=== PATIENT | female | born 1950 | race Caucasian/White ===

== ENCOUNTER 2017-01-07 19:58 | Emergency (ER) | payer MEDICARE, BC ==
[2017-01-07] MEDS ORDERED: IPRATROPIUM/ALBUTEROL (0.5MG/3MG) NEB INH ONE (20:36)
--- NOTE | 2017-01-07 20:42 | Emergency Department Record ---
History of Present Illness - General Chief Complaint: Shortness of breath Stated Complaint: SOB, MAY HAVE A BLOOD CLOT Source: Patient Mode of Arrival: Ambulatory Limitations: No limitations - History of Present Illness Initial Comments: 66 yo female presents to ED for evaluation of shortness of breath and elevated outpatient D-Dimer. Patient reports that she was seen in [facility] earlier today for possible UTI, mentioned her shortness of breath as she wanted a refill on her Flovent. Outpatient D-Dimer was ordered that was elevated. Patient denies fevers, chills, or coughing symptoms. 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 Patient also reports history of colon cancer in remission. MD Complaint: Shortness of breath Onset/Timin -: Days(s) Severity: Moderate Consistency: Constant Improves With: Nothing Worsens With: Exertion Known History Of: Asthma, DVT Associated Symptoms: Denies other symptoms Treatments Prior to Arrival: None - Related Data Home Oxygen Therapy: No Home Medications Medication Instructions Recorded Confirmed Last Taken Carvedilol [Coreg] 3.125 mg PO BID 01/07/17 01/07/17 Unknown Previous Rx's Medication Instructions Recorded Fluticasone Propionate [Flovent 12 gm IH Q12H #3 aer.w.adap 01/07/17 220 Mcg] Allergies Allergy/AdvReac Type Severity Reaction Status Date / Time cyclobenzaprine Allergy Unknown HIVES Unverified 01/07/17 15:06 [CYCLOBENZAPRINE] nitroglycerin [NITROGLYCERIN] Allergy Unknown HYPERSENSIT Unverified 01/07/17 15 :06 IVITY Review of Systems Constitutional: Denies: Chills, Fever, Malaise, Night sweats Eyes: Denies: Eye discharge, Eye pain ENT: Denies: Congestion, Ear pain, Epistaxis Respiratory: Reports: Dyspnea. Denies: Cough Cardiovascular: Reports: Dyspnea on exertion. Denies: Chest pain Endocrine: Denies: Fatigue, Heat or cold intolerance Gastrointestinal: Denies: Abdominal pain, Nausea, Vomiting Genitourinary: Denies: Incontinence, Retention Musculoskeletal: Denies: Arthralgia, Back pain, Gout, Joint swelling Skin: Denies: Bruising, Change in color Neurological: Denies: Abnormal gait, Confusion, Headache, Seizure Psychiatric: Denies: Anxiety Hematological/Lymphatic: Denies: Anemia, Blood Clots Past Medical History - SOCIAL HISTORY Smoking Status: Former smoker - RESPIRATORY Hx Respiratory Disorders: Yes Hx Bronchitis: Yes Hx Pneumonia: Yes - CARDIOVASCULAR Hx Cardio Disorders: Yes Hx Cardiac Cath: Yes (stented maker 04/2012) Hx Chest Pain: Yes Hx Deep Vein Thrombosis: Yes (12/30-RLE DVT) 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/2009) Comment:: stents x3 - NEURO Hx Neuro Disorders: Yes Hx Dizziness: Yes Hx Headaches: Yes Hx Neuropathy: Yes - GI Hx GI Disorders: Yes Hx Reflux: Yes Hx Nausea/Vomiting: Yes Comment:: colon CA - Hx Genitourinary Disorders: Yes Hx UTI: Yes - ENDOCRINE Hx Endocrine Disorders: Yes Hx Diabetes: Yes Hx Thyroid Disease: No - MUSCULOSKELETAL Hx Musculoskeletal Disorders: Yes Comment:: diabetic neuropathy - PSYCH Hx Psych Problems: Yes Hx Anxiety: Yes - HEMATOLOGY/ONCOLOGY Hx Hematology/Oncology Disorders: Yes Hx Cancer: Yes (colon) Hx Chemotherapy: No Hx Radiation Therapy: No Comment:: DVT in left lower extremity Family Medical History *Cancer Comment: grandfather -colon ca Hx Diabetes: Mother Hx Heart Disease: Father *Heart Comment: heart attack Physical Exam - General General Appearance: Alert, Oriented x3, Cooperative, No acute distress Limitations: No limitations - Head Head exam: Atraumatic, Normocephalic, Normal inspection Head exam detail: negative: Abrasion, Contusion, Valente's sign, General tenderness, Hematoma, Laceration - Eye Eye exam: Normal appearance. negative: Conjunctival injection, Periorbital swelling, Periorbital tenderness, Scleral icterus - ENT Ear exam: negative: Auricular hematoma, Auricular trauma Nasal Exam: negative: Active bleeding, Discharge, Dried blood, Foreign body Mouth exam: negative: Drooling, Laceration, Muffled voice, Tongue elevation - Neck Neck exam: Normal inspection. negative: Meningismus, Tenderness - Respiratory Respiratory exam: Decreased breath sounds, Wheezes. negative: Rhonchi, Stridor - Cardiovascular Cardiovascular Exam: Regular rate, Normal rhythm, Normal heart sounds - GI/Abdominal GI/Abdominal exam: Soft. negative: Rebound, Rigid, Tenderness - Rectal Rectal exam: Deferred - exam: Deferred - Extremities Extremities exam: Normal inspection. negative: Calf tenderness, Pedal edema, Tenderness - Back Back exam: Denies: CVA tenderness (R), CVA tenderness (L) - Neurological Neurological exam: Alert, Normal gait, Oriented X3 - Psychiatric Psychiatric exam: Normal affect, Normal mood - Skin Skin exam: Normal color. negative: Abrasion Type of lesion: negative: abrasion Course Vital Signs 01/07/17 20:09 Temperature 97.8 F Pulse Rate [ 97 H Pulse Ox Probe] Respiratory 24 Rate Blood Pressure 148/80 [Left Arm] Pulse Ox 95 - Reevaluation(s) Reevaluation #1: 01/07/17 20:43 EKG: NSR 88 Normal axis, normal intervals No acute ST-T wave changes are present. No change from 02/01/16 Reevaluation #2: 01/07/17 21:14 Labs reviewed and are grossly unremarkable for an acute process. Reevaluation #3: 01/07/17 21:39 Patient reassessed, reports that her breathing symptoms are greatly improved following duoneb. CTA pending. Reevaluation #4: 01/07/17 21:56 CTA Chest: No PE, nothing acute. 9 mm nodule RUL unchanged from 2011, hiatal hernia, cholelithaisis w/o cholecystitis. Patient updated on all results, reports improvement in her symptoms, and appears stable for discharge at this time. Medical Decision Making - Lab Data Result diagrams: 01/07/17 20:47 01/07/17 20:47 Disposition Disposition: Discharge Clinical Impression: Asthma Qualifiers: Asthma severity: moderate Asthma persistence: unspecified Asthma complication type: uncomplicated Qualified Code(s): J45.909 - Unspecified asthma, uncomplicated Disposition: Home, Self-Care Condition: (2) Stable Instructions: Asthma (ED) Additional Instructions: Return to ED if your symptoms worsen or if you have any concerns. Flovent as directed. Follow-up with your family doctor in 3-5 days as directed. Prescriptions: Fluticasone Propionate [Flovent 220 Mcg] 12 gm IH Q12H #3 aer.w.adap Forms: Patient Portal Access Time of Disposition: 21:57 Quality - Quality Measures Quality Measures: N/A - Blood Pressure Screening Does Patient Have Any of the Following: No Blood Pressure Classification: Pre-Hypertensive BP Reading Systolic Measurement: 125 Diastolic Measurement: 81 Screening for High Blood Pressure: < Pre-Hypertensive BP, F/U Documented > [ G8950] Pre-Hypertensive Follow-up Interventions: Referral to alternative/primary care provider.
[2017-01-07 20:52] LABS: BASO % 0.3 % (0-6); EOS % 5.5 % (0-6); GRAN % 57.3 % (47-80); HEMATOCRIT 40.3 % (35.0-47.0); HEMOGLOBIN 13.4 gm/dl (11.6-16.0); LYMPH % 26.9 % (16-45); MEAN CELL VOLUME 87.4 fl (81-97); MEAN CORPUSCULAR HEMOGLOBIN 29.1 pg (27-33); MEAN CORPUSCULAR HGB CONC 33.3 g/dl (32-36); MEAN PLATELET VOLUME 9.3 fl (7.4-10.4); PLATELET COUNT 251 K/uL (130-400); RED BLOOD COUNT 4.61 M/uL (3.80-5.40); RED CELL DISTRIBUTION WIDTH 12.8 % (11.5-14.5); WHITE BLOOD COUNT W/O DIFF 8.6 K/uL (4.2-12.2)
[2017-01-07 21:10] LABS: ALB/GLOB RATIO 1.1 (1.1-1.8); ALBUMIN 3.9 g/dL (4.0-5.0); ALKALINE PHOSPHATASE 105 U/L (35-104); ALT/SGPT 12 U/L (<33); AST/SGOT 14 U/L (10.0-35.0); BLOOD UREA NITROGEN 13 mg/dL (8-23); CREATININE 0.6 mg/dL (0.5-0.9); EST GLOMERULAR FILTRATION RATE > 60 mL/min; GLUCOSE,RANDOM 169 mg/dL (74-109); TOTAL PROTEIN 7.4 g/dL (6.6-8.7)
--- NOTE | 2017-01-08 14:19 | CT ANGIOGRAM REPORT ---
EXAM: CTA OF THE CHEST HISTORY: SHORTNESS OF BREATH FOR ONE WEEK. TECHNIQUE: Contiguous axial images from the thoracic inlet to the upper abdomen were obtained after the uneventful intravenous administration of 80 ml of Omnipaque 350. Sagittal and coronal two dimensional MIP as well as 3D/MIP reformatted images of the thorax were obtained for better anatomic delineation. Comparison: CT of the chest 06/09/15. FINDINGS: Persistent nodule in the anterior aspect of the right lower lobe which is noncalcified measuring 7 mm, unchanged from 2012. The lungs are otherwise clear. No pleural effusion. Central airways are patent. The heart is borderline enlarged, but there is no pericardial effusion. Mild to moderate coronary artery calcification. No enlarged lymph nodes in the thorax. The pulmonary arteries are well opacified. No filling defect to suggest pulmonary embolism. No thoracic aorta dissection. Moderate sized hiatal hernia. The upper abdomen demonstrates a few small dependent gallstones in the gallbladder with no adjacent inflammation. No lytic or blastic osseous lesion. IMPRESSION: 1. NO ACUTE INTRATHORACIC PROCESS WITH NO PE OR THORACIC AORTIC DISSECTION. 2. BORDERLINE CARDIOMEGALY. 3. BENIGN 7 MM NODULE RIGHT UPPER LOBE. 4. MODERATE SIZED HIATAL HERNIA. 5. CHOLELITHIASIS. JOB NUMBER: [id number] [facility]
== END 2017-01-07 22:11 | disposition home or self-care (01) ==
LOC: ER 19:58
DX: J45.909 Unspecified asthma, uncomplicated (principal); R06.02 Shortness of breath; R79.89 Other specified abnormal findings of blood chemistry; E11.9 Type 2 diabetes mellitus without complications; I25.2 Old myocardial infarction; Z87.891 Personal history of nicotine dependence
CPT/HCPCS: 99284 ×2; 85025; 80053; 85379; 71275; 94640; 93005; 93010; Q9967

== ENCOUNTER 2017-04-07 16:07 | Emergency (ER) | payer MEDICARE, BC ==
--- NOTE | 2017-04-07 16:59 | Emergency Department Record ---
History of Present Illness - General Chief complaint: Edema Stated complaint: SWELLING/PAIN IN BOTH HANDS Time Seen by Provider: 04/07/17 16:44 Source: Patient Mode of Arrival: Ambulatory - History of Present Illness Initial comments: Patient states her hands have been swelling for over a week, and they worsen at night. Her rings still are loose enough. She has been off her lyrica for some time and has been overmedicating with nourontin, tylenol and ibuprofen for her pain. She went to [facility] and said that they couldn't see her today, but she did not make an appointment. She wishes her medications refilled. Complaint: Extremity swelling (fingers) Onset/Timin -: Days(s) History of Same: No Severity scale (1-10): 1 Quality: Aching Improves with: Nothing Worsens with: Nothing Associated Symptoms: Denies other symptoms - Related Data Home Medications Medication Instructions Recorded Confirmed Last Taken Aspirin [Aspir-Low] 1 tab PO DAILY 04/07/17 04/07/17 04/07/17 Gabapentin [Neurontin] 300 mg PO TID 04/07/17 04/07/17 04/07/17 Previous Rx's Medication Instructions Recorded Fluticasone Propionate [Flovent 12 gm IH Q12H #3 aer.w.adap 01/07/17 220 Mcg] Cephalexin [Keflex] 500 mg PO QID #40 cap 04/07/17 Indomethacin [Indocin] 50 mg PO TID #30 cap 04/07/17 Allergies Allergy/AdvReac Type Severity Reaction Status Date / Time cyclobenzaprine Allergy Unknown HIVES Verified 04/07/17 16:28 [CYCLOBENZAPRINE] nitroglycerin [NITROGLYCERIN] Allergy Unknown HYPERSENSIT Verified 04/07/17 16: 28 IVITY Travel Screening - Travel/Exposure Within Last 30 Days Have you traveled within the last 30 days?: No - Travel/Exposure Within Last Year Have you traveled outside the [place] in the last year?: No - Additonal Travel Details Have you been exposed to anyone with a communicable illness?: No - Travel Symptoms Symptom Screening: None Review of Systems Reviewed: No additional complaints except as noted below Constitutional: Reports: As per HPI. Denies: Chills, Fever, Malaise, Night sweats, Weakness, Weight change Eyes: Reports: As per HPI. Denies: Eye discharge, Eye pain, Photophobia, Vision change ENT: Reports: As per HPI. Denies: Congestion, Dental pain, Ear pain, Epistaxis , Hearing loss, Throat pain Respiratory: Reports: As per HPI. Denies: Cough, Dyspnea, Hemoptysis, Stridor, Wheezes Cardiovascular: Reports: As per HPI. Denies: Arrhythmia, Chest pain, Dyspnea on exertion, Edema, Murmurs, Orthopnea, Palpitations, Paroxysmal nocturnal dyspnea, Rheumatic Fever, Syncope Endocrine: Reports: As per HPI. Denies: Fatigue, Heat or cold intolerance, Polydipsia, Polyuria Gastrointestinal: Reports: As per HPI. Denies: Abdominal pain, Constipation, Diarrhea, Hematemesis, Hematochezia, Melena, Nausea, Vomiting Genitourinary: Reports: As per HPI. Denies: Abnormal menses, Discharge, Dyspareunia, Dysuria, Frequency, Hematuria, Incontinence, Retention, Urgency Musculoskeletal: Reports: As per HPI. Denies: Arthralgia, Back pain, Gout, Joint swelling, Myalgia, Neck pain Skin: Reports: As per HPI. Denies: Bruising, Change in color, Change in hair/ nails, Lesions, Pruritus, Rash Neurological: Reports: As per HPI. Denies: Abnormal gait, Confusion, Headache, Numbness, Paresthesias, Seizure, Tingling, Tremors, Vertigo, Weakness Psychiatric: Reports: As per HPI. Denies: Anxiety, Auditory hallucinations, Depression, Homicidal thoughts, Suicidal thoughts, Visual hallucinations Hematological/Lymphatic: Reports: As per HPI. 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) Comment:: stents x3 - NEURO Hx Neuro Disorders: Yes Hx Dizziness: Yes Hx Headaches: Yes Hx Neuropathy: Yes - GI Hx GI Disorders: Yes Hx Reflux: Yes Hx Nausea/Vomiting: Yes Comment:: colon CA - Hx Genitourinary Disorders: Yes Hx UTI: Yes - ENDOCRINE Hx Endocrine Disorders: Yes Hx Diabetes: Yes Hx Thyroid Disease: No - MUSCULOSKELETAL Hx Musculoskeletal Disorders: Yes Comment:: diabetic neuropathy - PSYCH Hx Psych Problems: Yes Hx Anxiety: Yes - HEMATOLOGY/ONCOLOGY Hx Hematology/Oncology Disorders: Yes Hx Cancer: Yes (colon) Hx Chemotherapy: No Hx Radiation Therapy: No Comment:: DVT in left lower extremity Family Medical History Any Significant Family History?: No *Cancer Comment: grandfather -colon ca Hx Diabetes: Mother Hx Heart Disease: Father *Heart Comment: heart attack Physical Exam - General General Appearance: Alert, Oriented x3, Cooperative, No acute distress, Mild distress (upset, tearful) - Head Head exam: Normal inspection - Eye Eye exam: Normal appearance, PERRL Pupils: Normal accommodation - ENT ENT exam: Normal exam, Mucous membranes moist, Normal external ear exam, Normal orophraynx, TM's normal bilaterally Ear exam: Normal external inspection. negative: External canal tenderness Nasal Exam: Normal inspection. negative: Discharge, Sinus tenderness Mouth exam: Normal external inspection, Tongue normal Teeth exam: Normal inspection. negative: Dental caries Throat exam: Normal inspection. negative: Tonsillar erythema, Tonsillar exudate - Neck Neck exam: Normal inspection, Full ROM. negative: Tenderness - Respiratory Respiratory exam: Normal lung sounds bilaterally. negative: Respiratory distress - Cardiovascular Cardiovascular Exam: Regular rate, Normal rhythm, Normal heart sounds - GI/Abdominal GI/Abdominal exam: Soft, Normal bowel sounds. negative: Tenderness - Rectal Rectal exam: Deferred - exam: Deferred - Extremities Extremities exam: Normal inspection, Full ROM, Normal capillary refill, Pedal edema (trace pitting bilaterally), Other (right great toe with erythema around nail and tenderness). negative: Calf tenderness, Tenderness - Back Back exam: Reports: Normal inspection, Full ROM. Denies: Muscle spasm, Rash noted, Tenderness - Neurological Neurological exam: Alert, CN II-XII intact, Normal gait, Oriented X3, Reflexes normal. negative: Motor sensory deficit - Psychiatric Psychiatric exam: Normal affect, Normal mood - Skin Skin exam: Dry, Intact, Normal color, Warm Course Vital Signs 04/07/17 16:14 Temperature 97.9 F Pulse Rate 94 H Respiratory 16 Rate Blood Pressure 138/100 Pulse Ox 94 L Medical Decision Making - Lab Data Result diagrams: 04/07/17 17:25 04/07/17 17:25 Disposition Disposition: Discharge Clinical Impression: Edema extremities, Cellulitis of great toe, right Condition: (2) Stable Instructions: Rheumatoid Arthritis (ED), Autoimmune Disease (ED) Additional Instructions: Take keflex as directed until gone. indocin as directed for pain. Follow up [facility] PCP without fail Call in morning for appointmentin the next 1-2 weeks or sooner. Prescriptions: Cephalexin [Keflex] 500 mg PO QID #40 cap Indomethacin [Indocin] 50 mg PO TID #30 cap Quality - Quality Measures Quality Measures: N/A - Blood Pressure Screening Does Patient Have Any of the Following: No, Active Dx of HTN Blood Pressure Classification: Hypertensive Reading Systolic Measurement: 138 Diastolic Measurement: 100 Screening for High Blood Pressure: Patient Exclusion, Hx of HTN [G9744]
[2017-04-07 17:37] LABS: BASO % 0.6 % (0-6); EOS % 5.2 % (0-6); HEMATOCRIT 39.7 % (35.0-47.0); HEMOGLOBIN 13.5 gm/dl (11.6-16.0); LYMPH % 29.3 % (16-45); MEAN CELL VOLUME 87.1 fl (81-97); MEAN CORPUSCULAR HEMOGLOBIN 29.6 pg (27-33); MEAN PLATELET VOLUME 8.9 fl (7.4-10.4); MONO % 8.9 % (0-9); PLATELET COUNT 242 K/uL (130-400); RED BLOOD COUNT 4.56 M/uL (3.80-5.40); WHITE BLOOD COUNT W/O DIFF 6.5 K/uL (4.2-12.2)
[2017-04-07 17:51] LABS: BLOOD UREA NITROGEN 17 mg/dL (8-23); CREATININE 0.7 mg/dL (0.5-0.9); EST GLOMERULAR FILTRATION RATE > 60 mL/min
[2017-04-07 17:52] LABS: INR 1.03; PROTHROMBIN TIME (PATIENT) 11.1 SECONDS (9.5-12.1); TOTAL PROTEIN 7.2 g/dL (6.6-8.7)
[2017-04-07 17:54] LABS: GLUCOSE,RANDOM 247 mg/dL (74-109)
[2017-04-07 17:56] LABS: ALT/SGPT 11 U/L (<33); AST/SGOT 12 U/L (10.0-35.0)
[2017-04-07 17:57] LABS: ALB/GLOB RATIO 1.5 (1.1-1.8); ALBUMIN 4.3 g/dL (4.0-5.0); ALKALINE PHOSPHATASE 93 U/L (35-104)
[2017-04-07 18:06] LABS: RHEUMATOID FACTOR SCREEN POSITIVE (NEGATIVE)
[2017-04-07 18:12] LABS: C-REACTIVE PROTEIN 0.7 mg/dL (<0.5)
[2017-04-07 18:16] LABS: ERYTHROCYTE SEDIMENTATION RATE 18 mm/hr (0-30)
[2017-04-07 18:27] LABS: RHEUMATOID FACTOR TITRE 1:16
--- NOTE | 2017-04-07 19:49 | RADIOLOGY REPORT ---
EXAM: TOES, RIGHT HISTORY: RIGHT GREAT TOE PAIN, SWELLING, AND REDNESS. TECHNIQUE: Three views of the right great toe were obtained. COMPARISON: None. FINDINGS: There is generalized soft tissue swelling. There is no soft tissue air or foreign body. There are mild arthritic changes within the interphalangeal joint of the great toe. There is no acute fracture or dislocation. A small periarticular erosion is present at the base of the first distal phalanx. Minor arthritic changes are partially visualized within the other toes. IMPRESSION: 1. NO ACUTE OSSEOUS ABNORMALITY. 2. MILD ARTHRITIC CHANGES OF THE INTERPHALANGEAL JOINT OF THE GREAT TOE WITH A SMALL PERIARTICULAR EROSION. 3. MILD SOFT TISSUE SWELLING. JOB NUMBER: [id number] [facility]
== END 2017-04-07 18:39 | disposition home or self-care (01) ==
LOC: ER 16:07
DX: L03.031 Cellulitis of right toe (principal); R60.0 Localized edema; I25.2 Old myocardial infarction; E11.9 Type 2 diabetes mellitus without complications; Z87.891 Personal history of nicotine dependence
CPT/HCPCS: 73660; 80053; 84550; 85025; 85610; 85651; 86140; 86431; 99283; 99284

== ENCOUNTER 2018-06-05 18:13 | Emergency (ER) | payer MEDICARE, BC ==
[2018-06-05 19:16] LABS: BASO % 1.3 % (0-6); EOS % 3.4 % (0-6); GRAN % 54.2 % (47-80); HEMATOCRIT 33.6 % (35.0-47.0); HEMOGLOBIN 10.4 gm/dl (11.6-16.0); LYMPH % 27.2 % (16-45); MEAN CELL VOLUME 89.8 fl (81-97); MEAN CORPUSCULAR HEMOGLOBIN 27.8 pg (27-33); MEAN PLATELET VOLUME 8.9 fl (7.4-10.4); MONO % 13.9 % (0-9); PLATELET COUNT 303 K/uL (130-400); RED BLOOD COUNT 3.74 M/uL (3.80-5.40); RED CELL DISTRIBUTION WIDTH 14.1 % (11.5-14.5)
--- NOTE | 2018-06-05 19:23 | Emergency Department Record ---
History of Present Illness - General Chief Complaint: Cough Stated Complaint: COUGH Time Seen by Provider: 06/05/18 18:29 Source: Patient Mode of Arrival: Ambulatory Limitations: No limitations - History of Present Illness Initial comments: pt was recently discharged from [facility] for pneumonia. she is feeling worse. she is weak, sleeping a lot. she has llq ap and n. she has a cough and sob -: Days(s) Location: Abdomen Quality: Aching Associated Symptoms: Cough, Loss of appetite, Malaise, Nausea/vomiting, Shortness of breath, Weakness - Lloyd Coma Scale Eye Response: (4) Open spontaneously Motor Response: (6) Obeys commands Verbal Response: (5) Oriented [place] Total: 15 - Related Data Home Medications Medication Instructions Recorded Confirmed Last Taken Acetaminophen [Tylenol 325Mg] 325 mg PO Q6H 06/05/18 06/05/18 Unknown Ascorbic Acid [Vitamin C] 250 mg PO DAILY 06/05/18 06/05/18 Unknown Celecoxib [Celebrex] 100 mg PO DAILY 06/05/18 06/05/18 Unknown Cholecalciferol (Vitamin D3) 1,000 unit PO DAILY 06/05/18 06/05/18 Unknown [Vitamin D3] Escitalopram Oxalate [Lexapro] 10 mg PO DAILY 06/05/18 06/05/18 Unknown Leflunomide [Arava] 20 mg PO DAILY 06/05/18 06/05/18 Unknown Prednisone 5 mg PO DAILY 06/05/18 06/05/18 Unknown Rivaroxaban [Xarelto] 2.5 mg PO DAILY 06/05/18 06/05/18 Unknown Previous Rx's Medication Instructions Recorded Fluticasone Propionate [Flovent 12 gm IH Q12H #3 aer.w.adap 01/07/17 220 Mcg] Levofloxacin [Levaquin] 750 mg PO DAILY #7 tab 06/06/18 Allergies Allergy/AdvReac Type Severity Reaction Status Date / Time cyclobenzaprine Allergy Unknown HIVES Verified 06/05/18 18:23 [CYCLOBENZAPRINE] nitroglycerin [NITROGLYCERIN] Allergy Unknown HYPERSENSIT Verified 06/05/18 18: 23 IVITY Travel Screening - Travel/Exposure Within Last 30 Days Have you traveled within the last 30 days?: No Review of Systems Reviewed: No additional complaints except as noted below Constitutional: Reports: As per HPI, Malaise, Weakness. Denies: Chills, Fever, Night sweats, Weight change Eyes: Reports: As per HPI. Denies: Eye discharge, Eye pain, Photophobia, Vision change ENT: Reports: As per HPI. Denies: Congestion, Dental pain, Ear pain, Epistaxis , Hearing loss, Throat pain Respiratory: Reports: As per HPI, Cough. Denies: Dyspnea, Hemoptysis, Stridor, Wheezes Cardiovascular: Reports: As per HPI, Dyspnea on exertion, Orthopnea. Denies: Arrhythmia, Chest pain, Edema, Murmurs, Palpitations, Paroxysmal nocturnal dyspnea, Rheumatic Fever, Syncope Endocrine: Reports: As per HPI. Denies: Fatigue, Heat or cold intolerance, Polydipsia, Polyuria Gastrointestinal: Reports: As per HPI. Denies: Abdominal pain, Constipation, Diarrhea, Hematemesis, Hematochezia, Melena, Nausea, Vomiting Genitourinary: Reports: As per HPI. Denies: Abnormal menses, Discharge, Dyspareunia, Dysuria, Frequency, Hematuria, Incontinence, Retention, Urgency Musculoskeletal: Reports: As per HPI. Denies: Arthralgia, Back pain, Gout, Joint swelling, Myalgia, Neck pain Skin: Reports: As per HPI. Denies: Bruising, Change in color, Change in hair/ nails, Lesions, Pruritus, Rash Neurological: Reports: As per HPI. Denies: Abnormal gait, Confusion, Headache, Numbness, Paresthesias, Seizure, Tingling, Tremors, Vertigo, Weakness Psychiatric: Reports: As per HPI. Denies: Anxiety, Auditory hallucinations, Depression, Homicidal thoughts, Suicidal thoughts, Visual hallucinations Hematological/Lymphatic: Reports: As per HPI. 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) Hx Irregular Heartbeat: Yes (afib) Comment:: stents x3 - NEURO Hx Neuro Disorders: Yes Hx Dizziness: Yes Hx Headaches: Yes Hx Neuropathy: Yes - GI Hx GI Disorders: Yes Hx Reflux: Yes Hx Nausea/Vomiting: Yes Comment:: colon CA - Hx Genitourinary Disorders: Yes Hx UTI: Yes - ENDOCRINE Hx Endocrine Disorders: Yes Hx Diabetes: Yes Hx Thyroid Disease: No - MUSCULOSKELETAL Hx Musculoskeletal Disorders: Yes Comment:: diabetic neuropathy - PSYCH Hx Psych Problems: Yes Hx Anxiety: Yes - HEMATOLOGY/ONCOLOGY Hx Hematology/Oncology Disorders: Yes Hx Cancer: Yes (colon) Hx Chemotherapy: No Hx Radiation Therapy: No Comment:: DVT in left lower extremity Family Medical History Any Significant Family History?: Yes *Cancer Comment: grandfather -colon ca Hx Diabetes: Mother Hx Heart Disease: Father *Heart Comment: heart attack Physical Exam - General General Appearance: Alert, Oriented x3, Cooperative, Mild distress - Head Head exam: Normal inspection - Eye Eye exam: Normal appearance, PERRL, EOMI Pupils: Normal accommodation - ENT ENT exam: Normal exam, Mucous membranes moist, Normal external ear exam, Normal orophraynx Ear exam: Normal external inspection. negative: External canal tenderness Nasal Exam: Normal inspection. negative: Discharge, Sinus tenderness Mouth exam: Normal external inspection, Tongue normal Teeth exam: Normal inspection. negative: Dental caries Throat exam: Normal inspection. negative: Tonsillar erythema, Tonsillar exudate - Neck Neck exam: Normal inspection, Full ROM. negative: Tenderness - Respiratory Respiratory exam: Normal lung sounds bilaterally. negative: Respiratory distress - Cardiovascular Cardiovascular Exam: Normal rhythm, Normal heart sounds, Tachycardia - GI/Abdominal GI/Abdominal exam: Soft, Normal bowel sounds, Tenderness - Rectal Rectal exam: Deferred - exam: Deferred - Extremities Extremities exam: Normal inspection, Full ROM, Normal capillary refill. negative: Tenderness - Back Back exam: Reports: Normal inspection, Full ROM. Denies: Muscle spasm, Rash noted, Tenderness - Neurological Neurological exam: Alert, CN II-XII intact, Normal gait, Oriented X3 - Psychiatric Psychiatric exam: Normal affect, Normal mood - Skin Skin exam: Dry, Intact, Pallor, Warm Course Vital Signs 06/05/18 18:17 Temperature 97.9 F Pulse Rate 100 H Respiratory 20 Rate Blood Pressure 152/91 Pulse Ox 97 - Reevaluation(s) Reevaluation #1: 06/06/18 00:40 pt feels better. Medical Decision Making - Lab Data Result diagrams: 06/05/18 19:03 06/05/18 19:03 Lab Results 06/05/18 06/05/18 Range/Units 19:03 19:15 WBC 6.0 (4.2-12.2) K/uL RBC 3.74 L (3.80-5.40) M/uL Hgb 10.4 L (11.6-16.0) gm/dl Hct 33.6 L (35.0-47.0) % MCV 89.8 (81-97) fl MCH 27.8 (27-33) pg MCHC 31.0 L (32-36) g/dl RDW 14.1 (11.5-14.5) % Plt Count 303 (130-400) K/uL MPV 8.9 (7.4-10.4) fl Gran % 54.2 (47-80) % Lymphocytes % 27.2 (16-45) % Monocytes % 13.9 H (0-9) % Eosinophils % 3.4 (0-6) % Basophils % 1.3 (0-6) % Magnesium Cancelled Disposition Disposition: Discharge Clinical Impression: Hypomagnesemia Pneumonia Qualifiers: Pneumonia type: due to unspecified organism Laterality: right Lung location: middle lobe of lung Qualified Code(s): J18.1 - Lobar pneumonia, unspecified organism Disposition: Home, Self-Care Condition: (1) Good Instructions: Pneumonia (ED), Hypomagnesemia (ED) Additional Instructions: follow up with family doctor. return sooner if worse. continue magnesium for 3 days and have it rechecked by family doctor. Prescriptions: Levofloxacin [Levaquin] 750 mg PO DAILY #7 tab Quality - Quality Measures Quality Measures: N/A - Blood Pressure Screening Does Patient Have Any of the Following: Active Dx of HTN Blood Pressure Classification: Hypertensive Reading Systolic Measurement: 152 Diastolic Measurement: 91 Screening for High Blood Pressure: Patient Exclusion, Hx of HTN [G9744]
[2018-06-05 19:29] LABS: BLOOD UREA NITROGEN 13 mg/dL (8-23); CREATININE 0.9 mg/dL (0.5-0.9); EST GLOMERULAR FILTRATION RATE > 60 mL/min
[2018-06-05 19:30] LABS: LIPASE 15 U/L (13-60)
[2018-06-05 19:32] LABS: GLUCOSE,RANDOM 272 mg/dL (74-109)
[2018-06-05 19:34] LABS: ALT/SGPT 21 U/L (<33)
[2018-06-05 19:35] LABS: ALB/GLOB RATIO 1.2 (1.1-1.8); ALBUMIN 3.3 g/dL (4.0-5.0); ALKALINE PHOSPHATASE 92 U/L (35-104); AST/SGOT 16 U/L (10.0-35.0)
[2018-06-05] MEDS ORDERED: MAGNESIUM SULFATE 16 MEQ in 0.9 % SODIUM CHLORIDE 100ML 100 ML IV ONE (19:57)
[2018-06-05] MEDS ORDERED: FUROSEMIDE IV 20MG/2ML VIAL IVP ONE (22:46)
[2018-06-05] MEDS ORDERED: LEVOFLOXACIN/D5W 750 MG/150 ML BAG IVPB ONE (22:51)
[2018-06-05 23:35] LABS: URINE APPEARANCE CLEAR; URINE BILIRUBIN NEGATIVE (NEGATIVE); URINE BLOOD NEGATIVE (NEGATIVE); URINE COLOR YELLOW; URINE GLUCOSE (UA) NEGATIVE (NEGATIVE); URINE KETONE NEGATIVE (NEGATIVE); URINE LEUKOCYTE ESTERASE NEGATIVE (NEGATIVE); URINE NITRITE NEGATIVE (NEGATIVE); URINE PROTEIN NEGATIVE (NEGATIVE); URINE UROBILINOGEN 0.2 E.U./dL (0.20 - 1.00)
--- NOTE | 2018-06-08 07:34 | RADIOLOGY REPORT ---
EXAM: CHEST, TWO VIEWS HISTORY: RECENTLY DIAGNOSED PNEUMONIA, PROGRESSIVE WEAKNESS AND SHORTNESS OF BREATH WITH COUGH. TECHNIQUE: Two views of the chest were obtained. Comparison: CT of the abdomen and pelvis 06/05/18, chest radiograph 02/01/16. FINDINGS: The cardiac silhouette is within normal size limits. The thoracic aorta is calcified. Patchy right middle lobe opacities. No significant pleural fluid collection appreciated. No visible pneumothorax. IMPRESSION: PATCHY RIGHT MIDDLE LOBE OPACITIES, MAY REPRESENT ATELECTASIS OR PNEUMONIA. JOB NUMBER: [id number] [facility]
--- NOTE | 2018-06-08 07:41 | CT SCAN REPORT ---
EXAM: CT OF THE ABDOMEN AND PELVIS WITH CONTRAST HISTORY: CHEST PAIN AND WEAKNESS. PRIOR HISTORY OF COLON CANCER STATUS POST RESECTION, PRIOR APPENDECTOMY. TECHNIQUE: CT of the abdomen and pelvis was obtained utilizing 100 ml Omnipaque 300 intravenous contrast. Comparison: None. FINDINGS: Partially seen right middle lobe patchy consolidation. Minimal irregular consolidation of the medial right lower lobe as well. Moderate sized hiatal hernia. Cholelithiasis. Unremarkable appearance of the liver, adrenal glands, spleen, and pancreas. Symmetric renal perfusion. No hydronephrosis. Diffuse atherosclerotic calcification of the aortoiliac arterial access without evidence of aneurysm or dissection. Oral contrast within the distal small bowel and colon, to the level of the rectum. Short segment of narrowing involving the mid transverse colon. The remainder of the colon appears non-thickened and noninflamed. The stomach and small bowel are nondilated. No mesenteric or retroperitoneal lymphadenopathy. No free air or free fluid. No adnexal mass is seen. Unremarkable appearance of the urinary bladder. Degenerative changes in the hips, greater on the right. Degenerative changes of the lumbar spine. IMPRESSION: 1. NO ACUTE FINDINGS IN THE ABDOMEN OR PELVIS. 2. PATCHY OPACITIES IN THE RIGHT LUNG BASE, MAY REPRESENT PNEUMONIA AND/OR ATELECTASIS. 3. SHORT SEGMENT OF NARROWING INVOLVING THE MID TRANSVERSE COLON; FAVOR TRANSIENT UNDERDISTENTION, ENTERIC CONTRAST AND STOOL ARE SEEN DISTALLY. RECOMMEND CORRELATION WITH COLONOSCOPY HISTORY. 4. CHOLELITHIASIS. 5. SMALL TO MODERATE SIZED HIATAL HERNIA. JOB NUMBER: [id number] [facility]
== END 2018-06-06 01:18 | disposition home or self-care (01) ==
LOC: ER 18:13
DX: J18.1 Lobar pneumonia, unspecified organism (principal); E83.42 Hypomagnesemia; R53.1 Weakness; R11.2 Nausea with vomiting, unspecified; R06.02 Shortness of breath; E11.9 Type 2 diabetes mellitus without complications; I10 Essential (primary) hypertension; I25.2 Old myocardial infarction; Z87.891 Personal history of nicotine dependence
CPT/HCPCS: 71046; 74177; 80053; 81003; 82800; 83605; 83690; 83735; 83880; 84484; 85025; 96365; 96366; 96375; 99284; J1940; J1956

== ENCOUNTER 2018-06-07 17:00 | Observation (INO) | payer MEDICARE, BC ==
--- NOTE | 2018-06-07 17:41 | Emergency Department Record ---
History of Present Illness - General Chief Complaint: Chest Pain Stated Complaint: LUC,CHEST PAIN,WEAKNESS Time Seen by Provider: 06/07/18 17:17 Source: Patient Mode of Arrival: Ambulatory Limitations: No limitations - History of Present Illness Initial Comments: The patient is here due to not feeling well for 3 weeks. She was recently in [place] for Pneumonia and was admitted for 6 days leaving about 11 days ago. Since she has not felt well. She has had anterior chest pain mildly for about 3 weeks but it has worsened in the last 3 days. The patient states the pain is sometimes retrosternal and aching. She has had intermittent LUC, SOB, sweating and nausea. The patient was here 2 days ago in the ER and told she still had pneumonia and was started on Levaquin. Since leaving the pain has worsened at times and now is mainly pain in the upper abdomen. The patient has been taking Xarelto since the fall of last year due to intermittent Afib. She does state her cough is improving. The patient also states she is supposed to have had her GB removed but due to the Afib and Xarelto it was postponed. MD Complaint: Chest pain Onset/Timin -: Week(s) Improves With: Nothing Worsens With: Nothing - Related Data Home Medications Medication Instructions Recorded Confirmed Last Taken Prednisone 5 mg PO Q48H 06/07/18 06/07/18 Unknown Pregabalin [Lyrica] 100 mg PO DAILY 06/07/18 06/07/18 Unknown Previous Rx's Medication Instructions Recorded Fluticasone Propionate [Flovent 12 gm IH Q12H #3 aer.w.adap 01/07/17 220 Mcg] Levofloxacin [Levaquin] 750 mg PO DAILY #7 tab 06/06/18 Allergies Allergy/AdvReac Type Severity Reaction Status Date / Time cyclobenzaprine Allergy Unknown HIVES Verified 06/07/18 17:15 [CYCLOBENZAPRINE] nitroglycerin [NITROGLYCERIN] Allergy Unknown HYPERSENSIT Verified 06/07/18 17: 15 IVITY Travel Screening - Travel/Exposure Within Last 30 Days Have you traveled within the last 30 days?: No - Travel/Exposure Within Last Year Have you traveled outside the [place] in the last year?: No - Additonal Travel Details Have you been exposed to anyone with a communicable illness?: No - Travel Symptoms Symptom Screening: None Review of Systems Constitutional: Reports: Malaise. Denies: Chills, Fever Eyes: Denies: Eye discharge ENT: Denies: Congestion Respiratory: Reports: Cough. Denies: Dyspnea Cardiovascular: Reports: Chest pain. 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/2009) Hx Irregular Heartbeat: Yes (afib) Comment:: stents x3 - NEURO Hx Neuro Disorders: Yes Hx Dizziness: Yes Hx Headaches: Yes Hx Neuropathy: Yes - GI Hx GI Disorders: Yes Hx Reflux: Yes Hx Nausea/Vomiting: Yes Comment:: colon CA - Hx Genitourinary Disorders: Yes Hx UTI: Yes - ENDOCRINE Hx Endocrine Disorders: Yes Hx Diabetes: Yes Hx Thyroid Disease: No - MUSCULOSKELETAL Hx Musculoskeletal Disorders: Yes Comment:: diabetic neuropathy - PSYCH Hx Psych Problems: Yes Hx Anxiety: Yes - HEMATOLOGY/ONCOLOGY Hx Hematology/Oncology Disorders: Yes Hx Cancer: Yes (colon) Hx Chemotherapy: No Hx Radiation Therapy: No Comment:: DVT in left lower extremity Family Medical History Any Significant Family History?: No *Cancer Comment: grandfather -colon ca Hx Diabetes: Mother Hx Heart Disease: Father *Heart Comment: heart attack Physical Exam - General General Appearance: Alert, Oriented x3, Cooperative, No acute distress (The patient does appear to be anemic on exam with pallor.) - Head Head exam: Atraumatic, Normocephalic, Normal inspection - Eye Eye exam: Normal appearance, PERRL, EOMI. negative: Conjunctival injection - ENT Throat exam: Normal inspection. negative: Tonsillar erythema, Tonsillar exudate - Neck Neck exam: Normal inspection, Full ROM. negative: Tenderness - Respiratory Respiratory exam: Normal lung sounds bilaterally. negative: Respiratory distress - Cardiovascular Cardiovascular Exam: Regular rate, Normal rhythm, Normal heart sounds - GI/Abdominal GI/Abdominal exam: Soft, Normal bowel sounds. negative: Rebound, Rigid, Tenderness - Extremities Extremities exam: Normal inspection, Full ROM, Normal capillary refill. negative: Tenderness - Neurological Neurological exam: Alert, Normal gait. negative: Abnormal gait, Motor sensory deficit - Psychiatric Psychiatric exam: negative: Agitated - Skin Skin exam: Pallor Course Vital Signs 06/07/18 17:17 Temperature 97.8 F Pulse Rate [ 104 H Pulse Ox Probe] Respiratory 18 Rate Blood Pressure 134/97 [Right Arm] Pulse Ox 97 - Reevaluation(s) Reevaluation #1: The patient now states she is mainly having upper AP and not CP. I asked her to show me where it has been hurting and she puts her hand between her umbilicus and xiphoid process. She also states she was supposed to have her gallbladder out in the fall but that was postponed due to the Afib. There has been no nausea or vomiting. 06/07/18 18:18 Reevaluation #2: The patient is doing better at this time. Her abdominal pain is now completely gone with the IV morphine. I did discuss the CT results with the patient and she is aware of the need for a colonoscopy. I did discuss the possible abnormal findings on the Abd CT relating to the possible abnormality to the descending colon that is seen on the CT. The patient and daughter are aware and may will F/ U. Due to the persistent AP and indeterminant Trop she will be admitted overnight for monitoring and an abd US to eval. her GB further. 06/07/18 19:35 Reevaluation #3: Due to the multiple issues I did discuss the case with Jeny ([employer]) and she will admit the patient to the hospital for monitoring and an abd us tomorrow. 06/07/18 19:38 Medical Decision Making - Data Complexity MDM Data: Labs Ordered and/or Reviewed, X-Ray Ordered and/or Reviewed, EKG Ordered and/or Reviewed - Lab Data Result diagrams: 06/07/18 17:20 06/07/18 17:20 - EKG Data -: EKG Interpreted by Me EKG: No Acute Changes - Radiology Data Radiology results: Report reviewed (CT: Gallstones, poss lumen abnormality to the descending colon. Rec colonoscopy. ) Disposition Disposition: Admit Clinical Impression: Abdominal pain Qualifiers: Abdominal location: unspecified location Qualified Code(s): R10.9 - Unspecified abdominal pain Disposition: Still a Patient at [facility] Decision to Admit: Admit from ER Decision to Admit Date: 06/07/18 Decision to Admit Time: 19:40 Accepting Physician: Lilia Time Discussed w/Accepting Physician: 19:40 Condition: (2) Stable Instructions: Abdominal Pain (ED) Forms: Patient Portal Access Time of Disposition: 19:40 Quality - Quality Measures Quality Measures: N/A - Blood Pressure Screening View Details: Yes Does Patient Have Any of the Following: No Blood Pressure Classification: Normal BP Reading Systolic Measurement: 100 Diastolic Measurement: 57 Screening for High Blood Pressure: < Normal BP, F/U Not Required > [G8783]
[2018-06-07 17:42] LABS: EOS % 2.7 % (0-6); HEMATOCRIT 34.9 % (35.0-47.0); HEMOGLOBIN 11.3 gm/dl (11.6-16.0); LYMPH % 28.7 % (16-45); MEAN CORPUSCULAR HEMOGLOBIN 28.8 pg (27-33); MEAN CORPUSCULAR HGB CONC 32.4 g/dl (32-36); MEAN PLATELET VOLUME 9.4 fl (7.4-10.4); MONO % 14.6 % (0-9); PLATELET COUNT 313 K/uL (130-400); RED BLOOD COUNT 3.92 M/uL (3.80-5.40); RED CELL DISTRIBUTION WIDTH 14.4 % (11.5-14.5); WHITE BLOOD COUNT W/O DIFF 6.9 K/uL (4.2-12.2)
[2018-06-07 17:55] LABS: BLOOD UREA NITROGEN 10 mg/dL (8-23); INR 1.4; PARTIAL THROMBOPLASTIN TIME 32.2 SECONDS (24.5-39.1); PROTHROMBIN TIME (PATIENT) 14.1 SECONDS (9.5-12.1)
[2018-06-07 17:56] LABS: CREATININE 0.9 mg/dL (0.5-0.9); EST GLOMERULAR FILTRATION RATE > 60 mL/min; TOTAL PROTEIN 6.4 g/dL (6.6-8.7)
[2018-06-07 17:58] LABS: GLUCOSE,RANDOM 164 mg/dL (74-109)
[2018-06-07 18:01] LABS: ALB/GLOB RATIO 1.2 (1.1-1.8); ALBUMIN 3.5 g/dL (4.0-5.0); ALKALINE PHOSPHATASE 90 U/L (35-104); ALT/SGPT 35 U/L (<33); AST/SGOT 36 U/L (10.0-35.0); CREATINE PHOSPHOKINASE 74 U/L (26-192)
[2018-06-07 18:03] LABS: CKMB 3.7 ng/mL (<3.77)
[2018-06-07] MEDS ORDERED: MORPHINE SULFATE 10 MG/ML VIAL IVP ONE (18:51)
[2018-06-07] MEDS ORDERED: 0.9 % SODIUM CHLORIDE 1,000 ML BAG IV ONE (18:51)
[2018-06-07] MEDS ORDERED: ONDANSETRON HCL IV 4 MG/2 ML VIAL IVP ONE (18:51)
[2018-06-07] MEDS ORDERED: HYDROMORPHONE HCL 2 MG/ML VIAL IVP PRN (19:45)
[2018-06-07] MEDS: ONDANSETRON HCL IV 4 MG/2 ML VIAL IVP PRN (20:32)
[2018-06-07] MEDS ORDERED: 0.9 % SODIUM CHLORIDE 1000ML 1,000 ML IV PRN (20:35)
[2018-06-07] MEDS ORDERED: ALBUTEROL HFA 8 GM INHALER INH PRN (20:35)
[2018-06-07] MEDS ORDERED: AL HYDROX/MAG HYDROX 30ML UD PO PRN (20:35)
[2018-06-07] MEDS ORDERED: ACETAMINOPHEN 325 MG TAB PO PRN (20:35)
[2018-06-07] MEDS ORDERED: PANTOPRAZOLE SODIUM IV 40 MG VIAL IVP SCH (21:00)
[2018-06-07] MEDS ORDERED: PREDNISONE 5 MG TAB PO SCH (21:00)
[2018-06-07] MEDS ORDERED: IPRATROPIUM BR 0.02% NEB (0.5MG) INH SCH (21:30)
[2018-06-07] MEDS: CARVEDILOL 3.125 MG TABLET PO SCH (21:50)
[2018-06-08] MEDS ORDERED: LEVOFLOXACIN 500 MG TABLET PO SCH (06:00)
--- NOTE | 2018-06-08 07:52 | CT SCAN REPORT ---
EXAM: NONCONTRAST CT OF THE ABDOMEN AND PELVIS HISTORY: GENERALIZED ABDOMINAL PAIN, PRIOR APPENDECTOMY. TECHNIQUE: Noncontrast CT of the abdomen and pelvis was obtained. Comparison: CT of the abdomen and pelvis 06/05/18. FINDINGS: Irregular linear consolidations in the right middle lobe, partially seen. Mild nodular linear consolidations in the right lower lobe. Similar from prior. Small to moderate hiatal hernia. Unremarkable appearance of the liver. Increased density within the gallbladder lumen, likely vicarious excretion of contrast from recent CT study. Unremarkable noncontrast appearance of the adrenal glands, spleen, and pancreas. No intrarenal calculi. No hydronephrosis. Unremarkable appearance of the urinary bladder. Residual contrast in areas of the colon and rectum. There is a persistent 4.4 cm segment of circumferential colonic wall thickening and underdistention near the junction of the descending and sigmoid colon (series 601 image 65). A previously described short segment of distention of the mid transverse colon now appears normally distended. The stomach and small bowel are nondilated. No free air or free fluid. Calcification of the aortoiliac arterial access without aneurysmal dilation. No acute osseous findings. IMPRESSION: 1. NO ACUTE FINDINGS IN THE ABDOMEN OR PELVIS. 2. SHORT SEGMENT OF CIRCUMFERENTIAL WALL THICKENING AND UNDERDISTENTION NEAR THE JUNCTION OF THE DESCENDING AND SIGMOID COLON; A SIMILAR APPEARANCE WAS PRESENT ON CT PERFORMED TWO DAYS PRIOR. RECOMMEND CORRELATION WITH DIRECT VISUALIZATION/ENDOSCOPY. A PREVIOUSLY DESCRIBED SHORT SEGMENT OF NARROWING OF THE MID TRANSVERSE COLON NOW APPEARS NORMALLY DISTENDED. 3. SMALL TO MODERATE HIATAL HERNIA. 4. CHOLELITHIASIS. JOB NUMBER: [id number] [facility]
[2018-06-08] MEDS ORDERED: RIVAROXABAN 2.5 MG PO SCH (10:00)
[2018-06-08] MEDS ORDERED: ARNUITY (FLUTICASONE FUROATE) 100MCG INH INH SCH (10:00)
[2018-06-08] MEDS ORDERED: PREGABALIN (LYRICA) 100MG CAPSULE PO SCH (10:00)
[2018-06-08] MEDS ORDERED: ESCITALOPRAM 10 MG TABLET PO SCH (10:00)
[2018-06-08] MEDS ORDERED: ISOSORBIDE MONONITRATE 30 MG TAB.ER.24H PO SCH (10:00)
[2018-06-08] MEDS ORDERED: Non-Formulary MISC (Sitagliptin Phosphate [Januvia] 100 MG) PO SCH (10:00)
[2018-06-08] MEDS: ONDANSETRON HCL IV 4 MG/2 ML VIAL IVP PRN (10:22)
[2018-06-08] MEDS ORDERED: KETOROLAC 30 MG/ML VIAL IVP ONE (10:56)
[2018-06-08] MEDS ORDERED: ACETAMINOPHEN 1,000 MG/100 ML BTL IVPB ONE (10:57)
[2018-06-08] MEDS ORDERED: LORAZEPAM 2 MG/ML VIAL IV ONE (10:58)
--- NOTE | 2018-06-08 11:05 | History & Physical ---
History of Present Illness - Date of Service Date of Service for History & Physical: 06/08/18 - History of Present Illness Admitting Diagnosis: 1. Upper Abdominal Pain with Indeterminant Trop. History of Present Illness: Harika Jenkins is a 67 y.o. F who presented to the [facility] ED for chest pain that has worsened over the last 3 days, although she has been experiencing some discomfort x 3 weeks. Reported that the pain is retrosternal and achy but mostly in upper abdomen. Does also have intermittent LUC, SOB, sweating and nausea. Was in the ED on 06/05/18 and was dx'd with PNA and prescribed Levaquin. Additionally, she had an inpatient stay at [facility] for PNA approximately 3 weeks ago. Has been out of [facility] nearly 2 weeks. She is a bit of a poor historian but does state that she was supposed to have her gall bladder removed in November 2017 but it was postponed d/t the Afib and Xarelto use. She does not know who the surgeon was that she was scheduled with and has not rescheduled the surgery. Reports that she follows with Dr. Morse with [facility] out of [facility]. ED Course Vitals: T 97.8, P 104, BP 134/97, RR 16, SpO2 97% on RA CXR (06/05/18): Patchy RML opacities (atelectasis v. PNA) CT Abd/Pelvis: Cholelithiasis, abnormalities near descending and sigmoid colon, hiatal hernia Labs: Trops 0.029, AST/ALT 35/36, Hgb 11.3 06/08/18 1000: Vitals: T 97.6, Hr 94, BP 146/81, RR 18, SpO2 96% on 2L NC Sitting up on edge of bed, rubbing abdomen. States "I am so sweaty under my breasts" and "I feel so nauseated". C/o pain to RUQ of abdomen. Was refusing to have Abdomen U/S done d/t pain with pressure of ultrasound wand on abd. Willing to see Dr. Barillas with General Surgery. Unclear on which medications pt has been taking and which she has not. Thinks she hasn't taken her Lyrica or Lexapro in a month. States that her PCP won't fill her pain medications without an appointment, however no records of this noted in Family Practice notes. Travel Screening - Travel/Exposure Within Last 30 Days Have you traveled within the last 30 days?: No - Travel/Exposure Within Last Year Have you traveled outside the [place] in the last year?: No - Additonal Travel Details Have you been exposed to anyone with a communicable illness?: No - Travel Symptoms Symptom Screening: None Review of Systems Reviewed: No additional complaints except as noted below Constitutional: Reports: Malaise, Weakness. Denies: Chills, Fever Eyes: Denies: Eye discharge ENT: Denies: Congestion Respiratory: Reports: Cough. Denies: Dyspnea Cardiovascular: Reports: Chest pain. 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/2009) Hx Irregular Heartbeat: Yes (afib) Comment:: stents x3 - NEURO Hx Neuro Disorders: Yes Hx Dizziness: Yes Hx Headaches: Yes Hx Neuropathy: Yes - GI Hx GI Disorders: Yes Hx Reflux: Yes Hx Nausea/Vomiting: Yes Comment:: colon CA - Hx Genitourinary Disorders: Yes Hx UTI: Yes - ENDOCRINE Hx Endocrine Disorders: Yes Hx Diabetes: Yes Hx Thyroid Disease: No - MUSCULOSKELETAL Hx Musculoskeletal Disorders: Yes Comment:: diabetic neuropathy - PSYCH Hx Psych Problems: Yes Hx Anxiety: Yes - HEMATOLOGY/ONCOLOGY Hx Hematology/Oncology Disorders: Yes Hx Cancer: Yes (colon) Hx Chemotherapy: No Hx Radiation Therapy: No Comment:: DVT in left lower extremity Family Medical History Any Significant Family History?: No *Cancer Comment: grandfather -colon ca Hx Diabetes: Mother Hx Heart Disease: Father *Heart Comment: heart attack H&P Meds/Allergies - Allergies Allergies: Allergies Allergy/AdvReac Type Severity Reaction Status Date / Time cyclobenzaprine Allergy Unknown HIVES Verified 03/24/19 17:15 [CYCLOBENZAPRINE] nitroglycerin [NITROGLYCERIN] Allergy Unknown HYPERSENSIT Verified 06/07/18 17: 15 IVITY - Home Medications Home Medications Medication Instructions Recorded Confirmed Last Taken Prednisone 5 mg PO Q48H 06/07/18 06/07/18 Unknown Pregabalin [Lyrica] 100 mg PO BID 06/07/18 06/08/18 Unknown Rivaroxaban [Xarelto] 20 mg PO 1730 06/08/18 06/08/18 Unknown Previous Rx's Medication Instructions Recorded Fluticasone Propionate [Flovent 12 gm IH Q12H #3 aer.w.adap 01/07/17 220 Mcg] Levofloxacin [Levaquin] 750 mg PO DAILY #7 tab 06/06/18 - Active Medications Active Medications: Current Medications Acetaminophen (Tylenol 325mg) 650 mg PO Q6H PRN PRN Reason: PAIN - MILD(1-4)/FEVER Al Hydroxide/Mg Hydroxide (Maalox) 30 ml PO Q4H PRN PRN Reason: ABDOMINAL PAIN Albuterol Sulfate (Ventolin Hfa) 1 puff INH Q4H PRN PRN Reason: SOB Carvedilol (Coreg) 3.125 mg PO BID [facility] Last Admin: 06/07/18 21:50 Dose: 3.125 mg Escitalopram Oxalate (Lexapro) 10 mg PO DAILY [facility] Hydromorphone HCl (Dilaudid) 0.5 mg IVP Q4H PRN PRN Reason: ABDOMINAL PAIN Last Admin: 06/08/18 09:51 Dose: 0.5 mg Sodium Chloride () 1,000 mls @ 83 mls/hr IV .Q12H3M PRN PRN Reason: LARGE VOLUME IV Last Admin: 06/08/18 09:55 Dose: 83 mls/hr Acetaminophen (Ofirmev) 1,000 mg in 100 mls @ 400 mls/hr IVPB NOW ONE Stop: 06/08/18 11:11 Ipratropium Gilman (Atrovent 0.02% Neb) 2.5 ml INH BID [facility] Last Admin: 06/08/18 10:44 Dose: Not Given Isosorbide Mononitrate (Imdur) 30 mg PO DAILY [facility] Levofloxacin (L[facility]quin Tab) [facility] Last Admin: 06/08/18 06:18 Dose: 750 mg Ondansetron HCl (Zofran) 4 mg IVP Q4H PRN PRN Reason: NAUSEA Last Admin: 06/08/18 10:22 Dose: 4 mg Pantoprazole Sodium (Protonix Iv) 40 mg IVP 2100 [facility] Last Admin: 06/07/18 21:50 Dose: 40 mg Prednisone (Prednisone 5mg) 5 mg PO Q48H [facility] Last Admin: 06/07/18 21:50 Dose: 5 mg Pregabalin (Lyrica) 100 mg PO BID [facility] Rivaroxaban (Xarelto) 20 mg PO 1730 [facility] Physical Exam - Vital Signs Vital Signs: Vital Signs - Last 24 Hrs Temp Pulse Resp BP Pulse Ox 06/08/18 08:27 97.6 F 94 H 18 146/81 96 06/08/18 06:00 97.8 F 67 20 145/67 95 06/08/18 02:06 75 20 151/72 95 06/07/18 22:04 84 20 150/75 98 06/07/18 21:00 18 06/07/18 20:35 97.9 F 87 20 166/75 96 06/07/18 20:16 85 18 120/78 98 06/07/18 19:42 88 16 100/57 99 06/07/18 18:55 97 H 18 113/74 96 06/07/18 17:17 97.8 F 104 H 18 134/97 97 - General General Appearance: Alert, Oriented x3, Cooperative, Mild distress Limitations: No limitations - Head Head exam: Atraumatic, Normocephalic, Normal inspection - Eye Eye exam: Normal appearance, PERRL, EOMI. negative: Conjunctival injection - ENT Throat exam: Normal inspection. negative: Tonsillar erythema, Tonsillar exudate - Neck Neck exam: Normal inspection, Full ROM. negative: Tenderness - Respiratory Respiratory exam: Normal lung sounds bilaterally. negative: Respiratory distress - Cardiovascular Cardiovascular Exam: Regular rate, Normal rhythm, Normal heart sounds - GI/Abdominal GI/Abdominal exam: Soft, Normal bowel sounds, Guarding. negative: Distended, Rebound, Rigid, Tenderness - Rectal Rectal exam: Deferred - exam: Deferred - Extremities Extremities exam: Normal inspection, Full ROM, Normal capillary refill. negative: Tenderness - Neurological Neurological exam: Alert, Normal gait. negative: Abnormal gait, Motor sensory deficit - Psychiatric Psychiatric exam: Anxious. negative: Agitated - Skin Skin exam: Pallor (yellow tinge) Results - Labs Result Diagrams: 06/07/18 17:20 06/07/18 17:20 Labs Last 24 Hours: Laboratory Results - last 24 hr 06/07/18 06/07/18 06/07/18 02:35 17:20 17:20 WBC 6.9 RBC 3.92 Hgb 11.3 L Hct 34.9 L MCV 89.0 MCH 28.8 MCHC 32.4 RDW 14.4 Plt Count 313 MPV 9.4 Gran % 53.0 Lymphocytes % 28.7 Monocytes % 14.6 H Eosinophils % 2.7 Basophils % 1.0 PT 14.1 H INR 1.4 APTT 32.2 Sodium Potassium Chloride Carbon Dioxide Anion Gap BUN Creatinine Estimated GFR Random Glucose Calcium Total Bilirubin AST ALT Alkaline Phosphatase Creatine Kinase CK-MB (CK-2) Troponin T Cancelled Total Protein Albumin Globulin Albumin/Globulin Ratio Lipase 06/07/18 06/07/18 06/08/18 17:20 17:20 02:35 WBC RBC Hgb Hct MCV MCH MCHC RDW Plt Count MPV Gran % Lymphocytes % Monocytes % Eosinophils % Basophils % PT INR APTT Sodium 137 Potassium 4.1 Chloride 98 Carbon Dioxide 25.0 Anion Gap 14.0 BUN 10 Creatinine 0.9 Estimated GFR > 60 Random Glucose 164 H Calcium 8.9 Total Bilirubin 0.40 AST 36 H ALT 35 H Alkaline Phosphatase 90 Creatine Kinase 74 CK-MB (CK-2) 3.7 Troponin T 0.029 H 0.012 H Total Protein 6.4 L Albumin 3.5 L Globulin 2.9 Albumin/Globulin Ratio 1.2 Lipase 9 L - Imaging and Cardiology CT scan - abdomen Status: Report reviewed US - abdomen Status: Report reviewed VTE H&P Assessment - Risk for VTE Risk for VTE: Yes Risk Level: Moderate Risk Assessment Date: 06/08/18 Risk Assessment Time: 10:00 VTE Orders Placed or Will Be Placed: Yes Plan - Detailed Diagnosis and Plan (1) Abdominal pain Current Visit: Yes Status: Acute Qualifiers: Abdominal location: unspecified location Qualified Code(s): R10.9 - Unspecified abdominal pain Base Code: R10.9 - UNSPECIFIED ABDOMINAL PAIN Comment: 06/08/18 -RUQ Abdominal pain -CT Abd/Pelvis: Cholelithiasis, abnormalities near descending and sigmoid colon , hiatal hernia -Abd U/S: cholelithiasis -AST/ALT slightly elevated at 36/35 -Will discuss case with Dr. Barillas (on-call for General Surgery). (2) Chest pain Current Visit: No Status: Acute Qualifiers: Chest pain type: unspecified Qualified Code(s): R07.9 - Chest pain, unspecified Base Code: R07.9 - CHEST PAIN, UNSPECIFIED Comment: 06/08/18 -Follows with Dr. Morse with [facility] at [facility] -Troponins x 3: 0.029, 0.012, 0.013 -EKG: Sinus Tach -Continuous Telembery monitoring shows NSR -CP potentially r/t cholelithiasis (3) DVT prophylaxis Current Visit: No Status: Acute Base Code: [id number] - Comment: 06/08/18 -Continue Xarelto 20mg daily (4) Pneumonia Current Visit: No Status: Acute Qualifiers: Pneumonia type: due to unspecified organism Laterality: right Lung location: middle lobe of lung Qualified Code(s): J18.1 - Lobar pneumonia, unspecified organism Base Code: J18.9 - PNEUMONIA, UNSPECIFIED ORGANISM Comment: 06/08/18 -CXR (06/05/18): Patchy RML opacities, atelectasis v. PNA -Was just hospitalized at [facility] 3 weeks ago for approx. 6 days for PNA tx -Continue Levaquin 750mg q. day (started on 06/05/18) -Continue breathing treatments per RT (5) Full code status Current Visit: No Status: Acute Base Code: Z78.9 - OTHER SPECIFIED HEALTH STATUS Comment: 06/08/18 -Full code this admission
[2018-06-08] MEDS: CARVEDILOL 3.125 MG TABLET PO SCH (13:21)
--- NOTE | 2018-06-08 13:43 | ULTRASOUND REPORT ---
EXAM: COMPLETE ABDOMEN ULTRASOUND HISTORY: NAUSEA, VOMITING, RIGHT UPPER QUADRANT ABDOMINAL PAIN. TECHNIQUE: Complete abdominal ultrasound was obtained. Comparison: CT of the abdomen and pelvis 05/10/18. FINDINGS: The visualized hepatic parenchyma is within normal limits. Unremarkable ferrer scale appearance of the inferior vena cava at the level of the liver. The visualized portions of the abdominal aorta are not dilated. Small calculi and layering sludge within the gallbladder lumen. The gallbladder wall measures 2-3 mm, within normal limits. No visible pericholecystic fluid. The common bile duct measures up to 3 mm, nondilated. No visible intrahepatic biliary ductal dilatation. The right renal length is 9.4 cm. The left renal length is 9.6 cm. No hydronephrosis. No shadowing calculus or focal mass demonstrated. Unremarkable appearance of the spleen. IMPRESSION: 1. CHOLELITHIASIS WITHOUT SECONDARY SONOGRAPHIC SIGNS TO SUGGEST ACUTE CHOLECYSTITIS. 2. NO EVIDENCE OF BILIARY DUCTAL DILATION. JOB NUMBER: [id number] MTDD
--- NOTE | 2018-06-08 14:36 | Discharge Summary ---
Providers Discharge Summary Date: 06/08/18 Date of admission: 06/07/18 20:29 Attending physician: OSIRIS GIL Primary care physician: Yessi Mccracken N.P. Physical Exam - Vital Signs Vital Signs: Vital Signs - Last 24 Hrs Temp Pulse Resp BP Pulse Ox 06/08/18 13:50 97.2 F L 89 18 137/84 98 06/08/18 09:00 94 H 18 06/08/18 08:27 97.6 F 94 H 18 146/81 96 06/08/18 06:00 97.8 F 67 20 145/67 95 06/08/18 02:06 75 20 151/72 95 06/07/18 22:04 84 20 150/75 98 06/07/18 21:00 18 06/07/18 20:35 97.9 F 87 20 166/75 96 06/07/18 20:16 85 18 120/78 98 06/07/18 19:42 88 16 100/57 99 06/07/18 18:55 97 H 18 113/74 96 06/07/18 17:17 97.8 F 104 H 18 134/97 97 - General General Appearance: Alert, Oriented x3, Cooperative, Mild distress Limitations: No limitations - Head Head exam: Atraumatic, Normocephalic, Normal inspection - Eye Eye exam: Normal appearance, PERRL, EOMI. negative: Conjunctival injection - ENT Throat exam: Normal inspection. negative: Tonsillar erythema, Tonsillar exudate - Neck Neck exam: Normal inspection, Full ROM. negative: Tenderness - Respiratory Respiratory exam: Normal lung sounds bilaterally. negative: Respiratory distress - Cardiovascular Cardiovascular Exam: Regular rate, Normal rhythm, Normal heart sounds - GI/Abdominal GI/Abdominal exam: Soft, Normal bowel sounds, Guarding. negative: Distended, Rebound, Rigid, Tenderness - Rectal Rectal exam: Deferred - exam: Deferred - Extremities Extremities exam: Normal inspection, Full ROM, Normal capillary refill. negative: Tenderness - Neurological Neurological exam: Alert, Normal gait. negative: Abnormal gait, Motor sensory deficit - Psychiatric Psychiatric exam: Anxious. negative: Agitated - Skin Skin exam: Pallor (yellow tinge) Hospitalization - Hospitalization Admission Diagnosis: 1. Upper Abdominal Pain with Indeterminant Trop. - Problem List/Discharge Diagnosis (1) Abdominal pain Current Visit: Yes Status: Acute Discharge Diagnosis: Abdominal location: unspecified location Qualified Code(s): R10.9 - Unspecified abdominal pain Base Code: R10.9 - UNSPECIFIED ABDOMINAL PAIN Comment: 06/08/18 -Discussed case with Dr. Barillas (General Surgery) who was willing to direct admit pt at [facility] for potential surgery -Coordination being made to transfer pt -RUQ Abdominal pain -CT Abd/Pelvis: Cholelithiasis, abnormalities near descending and sigmoid colon , hiatal hernia -Abd U/S: cholelithiasis -AST/ALT slightly elevated at 36/35 -Recommend colonoscopy outpatient to evaluate descending and sigmoid colon abnormalities. (2) Chest pain Current Visit: No Status: Acute Discharge Diagnosis: Chest pain type: unspecified Qualified Code(s): R07.9 - Chest pain, unspecified Base Code: R07.9 - CHEST PAIN, UNSPECIFIED Comment: 06/08/18 -Follows with Dr. Morse with [facility] at [facility] -Troponins x 3: 0.029, 0.012, 0.013 -EKG: Sinus Tach -Continuous Telembery monitoring shows NSR -CP potentially r/t cholelithiasis (3) DVT prophylaxis Current Visit: No Status: Acute Base Code: [id number] - Comment: 06/08/18 -Continue Xarelto 20mg daily (4) Pneumonia Current Visit: No Status: Acute Discharge Diagnosis: Pneumonia type: due to unspecified organism Laterality: right Lung location: middle lobe of lung Qualified Code(s): J18.1 - Lobar pneumonia, unspecified organism Base Code: J18.9 - PNEUMONIA, UNSPECIFIED ORGANISM Comment: 06/08/18 -CXR (06/05/18): Patchy RML opacities, atelectasis v. PNA -Was just hospitalized at [facility] 3 weeks ago for approx. 6 days for PNA tx -Continue Levaquin 750mg q. day (started on 06/05/18) -Continue breathing treatments per RT (5) Full code status Current Visit: No Status: Acute Base Code: Z78.9 - OTHER SPECIFIED HEALTH STATUS Comment: 06/08/18 -Full code this admission - Hospitalization Course Disposition: Acute Care Hospital Transfer Hospital Course: Harika Jenkins is a 67 y.o. F who presented to the [facility] ED for chest pain that has worsened over the last 3 days, although she has been experiencing some discomfort x 3 weeks. Reported that the pain is retrosternal and achy but mostly in upper abdomen. Does also have intermittent LUC, SOB, sweating and nausea. Was in the ED on 06/05/18 and was dx'd with PNA and prescribed Levaquin. Additionally, she had an inpatient stay at [facility] for PNA approximately 3 weeks ago. Has been out of [facility] nearly 2 weeks. She is a bit of a poor historian but does state that she was supposed to have her gall bladder removed in November 2017 but it was postponed d/t the Afib and Xarelto use. She does not know who the surgeon was that she was scheduled with and has not rescheduled the surgery. Reports that she follows with Dr. Morse with [facility] out of [facility]. ED Course Vitals: T 97.8, P 104, BP 134/97, RR 16, SpO2 97% on RA CXR (06/05/18): Patchy RML opacities (atelectasis v. PNA) CT Abd/Pelvis: Cholelithiasis, abnormalities near descending and sigmoid colon, hiatal hernia Labs: Trops 0.029, AST/ALT 35/36, Hgb 11.3 06/08/18 1000: Vitals: T 97.6, Hr 94, BP 146/81, RR 18, SpO2 96% on 2L NC Sitting up on edge of bed, rubbing abdomen. States "I am so sweaty under my breasts" and "I feel so nauseated". C/o pain to RUQ of abdomen. Was refusing to have Abdomen U/S done d/t pain with pressure of ultrasound wand on abd. Willing to see Dr. Barillas with General Surgery. Unclear on which medications pt has been taking and which she has not. Thinks she hasn't taken her Lyrica or Lexapro in a month. States that her PCP won't fill her pain medications without an appointment, however no records of this noted in Family Practice notes. Procedures: Imaging and X-Rays 06/07/18 18:16 ABDOMEN/PELVIS WO CONTRAST [CT] Stat 06/08/18 07:49 ABDOMEN, COMPLETE [US] Urgent Cardiology Procedures 06/07/18 17:19 EKG NOW 06/07/18 17:35 Cooper Apprentice NOW 06/07/18 20:35 Cooper Apprentice .Continuous EKG QDX2@0600 Abnormal Labs: Abnormal Lab Results 06/07/18 06/07/18 06/07/18 Range/Units 17:20 17:20 17:20 Hgb 11.3 L (11.6-16.0) gm/dl Hct 34.9 L (35.0-47.0) % Monocytes % 14.6 H (0-9) % PT 14.1 H (9.5-12.1) SECONDS Random Glucose 164 H (74-109) mg/dL AST 36 H (10.0-35.0) U/L ALT 35 H (<33) U/L Troponin T 0.029 H (0-0.010) ng/mL Total Protein 6.4 L (6.6-8.7) g/dL Albumin 3.5 L (4.0-5.0) g/dL Lipase (13-60) U/L 06/07/18 06/08/18 06/08/18 Range/Units 17:20 02:35 11:15 Hgb (11.6-16.0) gm/dl Hct (35.0-47.0) % Monocytes % (0-9) % PT (9.5-12.1) SECONDS Random Glucose (74-109) mg/dL AST (10.0-35.0) U/L ALT (<33) U/L Troponin T 0.012 H 0.018 H (0-0.010) ng/mL Total Protein (6.6-8.7) g/dL Albumin (4.0-5.0) g/dL Lipase 9 L (13-60) U/L Condition at Discharge: (2) Stable Discharge Medications - Discharge Medications Home Medications: Ambulatory Orders Loratadine [Claritin] 10 mg PO DAILY 10/22/13 [Last Taken 06/06/18] Multivitamin [Multi-Vitamin Daily] 1 tab PO DAILY 10/22/13 [Last Taken 06/06/18] Vitamin E Acid Succinate [Vitamin E] 200 unit PO DAILY tab 07/17/15 [Last Taken 06/06/18] Fluticasone Propionate [Flovent 220 Mcg] 12 gm IH Q12H #3 aer.w.adap 01/07/17 [ Last Taken 06/06/18] Acetaminophen [Tylenol 325Mg] 325 mg PO Q6H 06/05/18 [Last Taken 06/06/18] Ascorbic Acid [Vitamin C] 250 mg PO DAILY 06/05/18 [Last Taken 06/06/18] Celecoxib [Celebrex] 100 mg PO DAILY 06/05/18 [Last Taken 06/06/18] Cholecalciferol (Vitamin D3) [Vitamin D3] 1,000 unit PO DAILY 06/05/18 [Last Taken 06/06/18] Escitalopram Oxalate [Lexapro] 10 mg PO DAILY 06/05/18 [Last Taken 06/06/18] Leflunomide [Arava] 20 mg PO DAILY 06/05/18 [Last Taken 06/06/18] Levofloxacin [Levaquin] 750 mg PO DAILY #7 tab 06/06/18 [Last Taken 06/06/18] Prednisone 5 mg PO Q48H 06/07/18 [Last Taken Unknown] Pregabalin [Lyrica] 100 mg PO BID 06/07/18 [Last Taken Unknown] Rivaroxaban [Xarelto] 20 mg PO 1730 06/08/18 [Last Taken Unknown] Discharge Plan - Discharge Instructions Instructions: Abdominal Pain (ED) Quality Measures - Quality Measures Quality Measures: Advance Directives, Documentation of Current Medications in Medical Record, Elder Maltreatment Screen and Follow-Up Plan, Screening for High Blood Pressure and F/U Documented - Current Medications Quality Measure: Measure #130: Documentation of Current Medications Documentation of Current Medications: <Current Medications Documented/Reviewed> [[id number]] - Blood Pressure Screening Quality Measure: Screening for High Blood Pressure and Follow-Up Documented Does Patient Have Any of the Following: Active Dx of HTN Blood Pressure Classification: Pre-Hypertensive BP Reading Systolic Measurement: 137 Diastolic Measurement: 84 Screening for High Blood Pressure: Patient Exclusion, Hx of HTN [G9744] - Advance Directives Quality Measure: Measure #47: Care Plan Advance Directives Established: No Advance Directives Information Provided To Patient: No Advance Directives on File: No Living Will: No Power of Motor Installer: No Advance Care Planning: <Care Plan/Decision Maker Documented; Discussed & Documented> [[id number]] - Elder Abuse Suspicion Index Screening: Elder Abuse Suspicion Index Screening Rely on people for bathing, dressing, shopping, banking, etc: No Prevented from getting food, clothes, medication, etc: No Made to feel shamed or threatened by someone: No Forced to sign papers or use money against will: No Feel afraid, touched in ways not wanted or hurt physically: No Poor eye contact, withdrawn, malnourished, cuts or bruises: No Screening Result: Negative result EASI Reference Information: Greer SLATER, Renaldo Black, Maia Estevez, Deanna Cruz.Development and validation of a tool to assist physicians identification of elder abuse: The Elder Abuse Suspicion Index (EASI ). Journal of Elder Abuse and Neglect, 2008; 20 (3): 276-300. - Elder Maltreatment Screen Quality Measures: Elder Maltreatment Screen and Follow-Up Plan Elder Maltreatment Screen: <Negative, No Follow-Up Plan Required> [G8734]
[2018-06-08] MEDS ORDERED: RIVAROXABAN 20 MG TABLET PO SCH (17:30)
== END 2018-06-08 13:50 | disposition short-term general hospital (02) ==
LOC: ER 17:00 → MEDSURG 20:29
PROVIDERS: ADMIT Internal Medicine; ATTEND Internal Medicine
DX: R10.9 Unspecified abdominal pain (principal); R79.89 Other specified abnormal findings of blood chemistry; R07.9 Chest pain, unspecified; R06.00 Dyspnea, unspecified; R53.1 Weakness; J18.1 Lobar pneumonia, unspecified organism; I48.91 Unspecified atrial fibrillation; E11.40 Type 2 diabetes mellitus with diabetic neuropathy, unspecified; Z79.01 Long term (current) use of anticoagulants; K21.9 Gastro-esophageal reflux disease without esophagitis; I25.2 Old myocardial infarction; Z85.038 Personal history of other malignant neoplasm of large intestine; Z95.5 Presence of coronary angioplasty implant and graft; Z86.718 Personal history of other venous thrombosis and embolism; Z87.891 Personal history of nicotine dependence
CPT/HCPCS: 74176; 76700; 80053; 82550; 82553; 83690; 84484; 85025; 85610; 85730; 93005; 93010; 94760; 96374; 96375; 96376; 99220; 99285; C9113; J1885; J2270; J2405; J7030; J7512

== ENCOUNTER 2018-07-16 21:24 | Emergency (ER) | payer MEDICARE, BC ==
[2018-07-16] MEDS ORDERED: 0.9 % SODIUM CHLORIDE 1000ML 1,000 ML IV ONE (21:41)
[2018-07-16] MEDS ORDERED: ONDANSETRON HCL IV 4 MG/2 ML VIAL IVP ONE (21:41)
--- NOTE | 2018-07-16 21:47 | Emergency Department Record ---
History of Present Illness - General Chief Complaint: Confusion Stated Complaint: NOT FEELING WELL Time Seen by Provider: 07/16/18 21:34 Source: Patient Mode of Arrival: Ambulatory Limitations: No limitations - History of Present Illness Initial Comments: 68 yo female presents with weakness, fatigue, nausea, poor appetite for a month. She had an open cholecystectomy 06/09/[address] Barillas. She had an open procedure. Her wound has been open and draining for about 4-5 weeks. She missed her scheduled follow up appointment Dr Barillas due to a family member unexpectedly get ill. She did see her PCP who did have her on oral antibiotics and it improved somewhat initially. No fevers. No blood in her diarrhea. She is eating and drinking but just a reduced amount. MD Complaint: Weakness Onset/Timin -: Days(s) Severity: Severe Consistency: Constant Context: Other Associated Symptoms: Weakness - Lloyd Coma Scale Eye Response: (4) Open spontaneously Motor Response: (6) Obeys commands Verbal Response: (5) Oriented Lloyd Total: 15 - Related Data Home Medications Medication Instructions Recorded Confirmed Last Taken Aspirin [Aspir-Low] 81 mg PO DAILY 07/16/18 07/16/18 Unknown Ipratropium [place] [Atrovent Hfa] 2 puff IH BID 07/16/18 07/16/18 Unknown Loratadine [Claritin] 10 mg PO DAILY 07/16/18 07/16/18 Unknown Sitagliptin Phosphate [Januvia] 100 mg PO DAILY 07/16/18 07/16/18 Unknown Previous Rx's Medication Instructions Recorded Clindamycin HCl 300 mg PO TID #21 capsule 07/17/18 Allergies Allergy/AdvReac Type Severity Reaction Status Date / Time cyclobenzaprine Allergy Unknown HIVES Verified 07/16/18 21:47 [CYCLOBENZAPRINE] nitroglycerin [NITROGLYCERIN] Allergy Unknown HYPERSENSIT Verified 07/16/18 21: 47 IVITY Travel Screening - Travel/Exposure Within Last 30 Days Have you traveled within the last 30 days?: No Review of Systems Constitutional: Reports: Malaise, Weakness. Denies: Chills Eyes: Denies: Eye discharge ENT: Denies: Congestion, Throat pain Respiratory: Denies: Cough, Dyspnea Cardiovascular: Denies: Chest pain, Palpitations, Syncope Endocrine: Reports: Fatigue Gastrointestinal: Reports: Abdominal pain, Diarrhea, Nausea, Vomiting Genitourinary: Denies: Dysuria Musculoskeletal: Denies: Arthralgia, Back pain, Myalgia Skin: Denies: Bruising, Change in color, Rash Neurological: Denies: Headache Psychiatric: Denies: Anxiety Hematological/Lymphatic: Denies: Easy bruising Past Medical History - SOCIAL HISTORY Smoking Status: Former smoker Alcohol Use: None Drug Use: None - RESPIRATORY Hx Respiratory Disorders: Yes Hx Bronchitis: Yes Hx Pneumonia: Yes - CARDIOVASCULAR Hx Cardio Disorders: Yes Hx Cardiac Cath: Yes (stented maker 04/2012) Hx Chest Pain: Yes Hx Deep Vein Thrombosis: Yes (12/30-RLE DVT) 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/2009) Hx Irregular Heartbeat: Yes (afib) Comment:: stents x3 - NEURO Hx Neuro Disorders: Yes Hx Dizziness: Yes Hx Headaches: Yes Hx Neuropathy: Yes - GI Hx GI Disorders: Yes Hx Reflux: Yes Hx Nausea/Vomiting: Yes Comment:: colon CA - Hx Genitourinary Disorders: Yes Hx UTI: Yes - ENDOCRINE Hx Endocrine Disorders: Yes Hx Diabetes: Yes Hx Thyroid Disease: No - MUSCULOSKELETAL Hx Musculoskeletal Disorders: Yes Comment:: diabetic neuropathy - PSYCH Hx Psych Problems: Yes Hx Anxiety: Yes - HEMATOLOGY/ONCOLOGY Hx Hematology/Oncology Disorders: Yes Hx Cancer: Yes (colon) Hx Chemotherapy: No Hx Radiation Therapy: No Comment:: DVT in left lower extremity Family Medical History Any Significant Family History?: Yes *Cancer Comment: grandfather -colon ca Hx Diabetes: Mother Hx Heart Disease: Father *Heart Comment: heart attack Physical Exam - General General Appearance: Alert, Oriented x3, Cooperative, No acute distress Limitations: No limitations - Head Head exam: Atraumatic, Normal inspection - Eye Eye exam: Normal appearance, PERRL. negative: Conjunctival injection, Scleral icterus - ENT ENT exam: Normal exam, Mucous membranes moist. negative: Mucous membranes dry Ear exam: Normal external inspection Nasal Exam: Normal inspection Mouth exam: Normal external inspection - Neck Neck exam: Normal inspection - Respiratory Respiratory exam: Normal lung sounds bilaterally. negative: Respiratory distress, Rhonchi, Stridor, Wheezes - Cardiovascular Cardiovascular Exam: Normal rhythm, Normal heart sounds, Tachycardia - GI/Abdominal GI/Abdominal exam: Soft, Normal bowel sounds, Tenderness, Other (Three areas of open wound from the open cholecystectomy with proteinatious like drainage 2.5cm , 2cm and 1cm in length, minimal erythema of the wound edges, NO surrounding cellulitis, no swelling, ). negative: Distended, Guarding - Rectal Rectal exam: Deferred - exam: Deferred - Extremities Extremities exam: Normal inspection - Back Back exam: Denies: CVA tenderness (R), CVA tenderness (L) - Neurological Neurological exam: Alert, Oriented X3. negative: Altered, Motor sensory deficit - Psychiatric Psychiatric exam: Normal affect, Normal mood. negative: Agitated, Anxious - Skin Skin exam: Dry, Intact, Normal color, Warm Course Vital Signs 07/16/18 21:30 Temperature 97.8 F Pulse Rate [ 109 H Pulse Ox Probe] Respiratory 20 Rate Blood Pressure 134/69 [Left Arm] Pulse Ox 100 - Reevaluation(s) Reevaluation #1: The labs results were reviewed There are no acute significant abnormalities of the CBC There are no acute significant abnormalities of the CMP 07/16/18 22:40 The patient is in CT at this time CRP is 1.3 07/16/18 23:[address] scan was reviewed subcutaneous stranding in the right subcostal region consistent with incision. NO fluid or abscess. 07/17/18 00:23 The results were discussed with Dr Valadez for Dr Barillas. The patient was offered transfer or admission to have Dr Valadez examine the chronic slow healing surgical wound. The patient refused for personal reasons. The patient after a long discussion has decided she is unwilling to see Dr Valadez at this time. She was offered admission to [facility] if she felt too weak to be safe at home. She and her daughter agree she is safe for home. She prefers [place] home to follow up with Dr Barillas first of the week. I reassured her she can return anytime if weak, fever, pain, not eating or any concerns. The wound does not appear overtly infected so she was given dressings for home until she can be seen in the office. 07/17/18 01:24 Medical Decision Making - Lab Data Result diagrams: 07/16/18 21:08 07/16/18 21:08 Disposition Disposition: Discharge Clinical Impression: Chronic wound infection of abdomen, Diarrhea Disposition: Home, Self-Care Condition: (1) Good Instructions: Chronic Wound Care (ED), Chronic Wounds (ED) Additional Instructions: Call Dr Barillas on Friday for close followup Call your family doctor tomorrow to schedule close follow up for your chronic wound as well Change the dressings daily on the wound You may return any time to have the wounds rechecked if you have any concerns with healing Prescriptions: Clindamycin HCl 300 mg PO TID #21 capsule Forms: Patient Portal Access Time of Disposition: 00:32 Quality - Quality Measures Quality Measures: N/A - Blood Pressure Screening Does Patient Have Any of the Following: No Blood Pressure Classification: Normal BP Reading Systolic Measurement: 105 Diastolic Measurement: 53 Screening for High Blood Pressure: < Normal BP, F/U Not Required > [G8783]
[2018-07-16 22:10] LABS: BASO % 0.4 % (0-6); EOS % 1.8 % (0-6); GRAN % 60.2 % (47-80); HEMOGLOBIN 12.4 gm/dl (11.6-16.0); LYMPH % 26.4 % (16-45); MEAN CELL VOLUME 88.3 fl (81-97); MEAN CORPUSCULAR HEMOGLOBIN 27.4 pg (27-33); MEAN PLATELET VOLUME 9.4 fl (7.4-10.4); MONO % 11.2 % (0-9); PLATELET COUNT 315 K/uL (130-400); RED BLOOD COUNT 4.53 M/uL (3.80-5.40); RED CELL DISTRIBUTION WIDTH 14.7 % (11.5-14.5); WHITE BLOOD COUNT W/O DIFF 7.9 K/uL (4.2-12.2)
[2018-07-16 22:21] LABS: BLOOD UREA NITROGEN 12 mg/dL (8-23); CREATININE 0.7 mg/dL (0.5-0.9); EST GLOMERULAR FILTRATION RATE > 60 mL/min
[2018-07-16 22:22] LABS: TOTAL PROTEIN 7.1 g/dL (6.6-8.7)
[2018-07-16 22:24] LABS: GLUCOSE,RANDOM 119 mg/dL (74-109)
[2018-07-16 22:26] LABS: ALB/GLOB RATIO 1.2 (1.1-1.8); ALBUMIN 3.8 g/dL (4.0-5.0); ALT/SGPT 11 U/L (<33); AST/SGOT 19 U/L (10.0-35.0)
[2018-07-16 22:27] LABS: ALKALINE PHOSPHATASE 103 U/L (35-104); C-REACTIVE PROTEIN 1.31 mg/dL (<0.5)
[2018-07-16] MEDS ORDERED: NYSTATIN 15 GM TUBE TOP STA (23:49)
[2018-07-17] MEDS ORDERED: CLINDAMYCIN 150 MG CAP PO ONE (00:36)
--- NOTE | 2018-07-19 14:35 | CT SCAN REPORT ---
DATE: 07/16/2018 at 2243. EXAM: CT OF THE ABDOMEN AND PELVIS WITH CONTRAST. HISTORY: CONFUSION. LOSS OF APPETITE. CHOLECYSTECTOMY ON 06/09/2018. POSSIBLE INFECTION OF SURGICAL SITE. TECHNIQUE: Contrast-enhanced helical CT examination of the abdomen and pelvis was performed including delayed images through the kidneys with 80 mL of Omnipaque 300 utilized. Oral contrast was not utilized, limiting evaluation of bowel. COMPARISON: CT of the abdomen and pelvis without contrast dated 06/07/2018. FINDINGS: A large hiatal hernia is redemonstrated. Evaluation of the intrathoracic portion of the stomach is limited by lack of distension. There is linear atelectasis versus scarring in the medial segment of the right middle lobe. This appears slightly improved in the interval. There is compressive atelectasis in the medial right lower lobe secondary to the hiatal hernia. No new lung base consolidation, pleural effusion, or pericardial effusion. The heart is enlarged. There is atherosclerotic calcification of the visualized mid to distal right coronary artery. There has been interval cholecystectomy. There is evidence of right upper quadrant laparotomy. Linearly oriented fat stranding in the right upper quadrant abdominal wall consistent with postsurgical change. Superimposed cellulitis would be difficult to exclude. There is a small area of focal dehiscence of incision site laterally. No gross fluid collection is noted within the gallbladder fossa. There is minimal fat stranding in the right upper quadrant near the cholecystectomy site. No biliary ductal dilatation. No suspicious focal lesion is demonstrated within the liver, spleen, pancreas, adrenal glands, nor kidneys. Evaluation of the kidneys, however, is mildly limited by respiratory motion artifact. No new intra-abdominal nor retroperitoneal lymphadenopathy. No evidence of intra-abdominal abscess. There is moderate diffuse atherosclerosis without aneurysmal dilatation of the abdominal aorta nor iliac arteries. Clinically significant stenosis of the proximal aspect of the left common iliac artery cannot be excluded. No new pelvic mass, lymphadenopathy, or free pelvic fluid. The uterus is in the midline. No focal urinary bladder wall abnormality is seen, though evaluation is limited by lack of distension. There is a small amount of air in the nondependent urinary bladder lumen. Has there been recent catheterization/ instrumentation? No gross bowel dilatation nor bowel wall thickening. No evidence of appendicitis, though the appendix is not visualized with confidence. No free intraperitoneal air. No new lytic or blastic bone lesion. There are degenerative changes scattered throughout the visualized spine. IMPRESSION: 1. INTERVAL OPEN CHOLECYSTECTOMY. NO EVIDENCE OF INTRA-ABDOMINAL ABSCESS, BILOMA, NOR BILIARY DUCTAL DILATATION. 2. THERE IS POSSIBLE FOCAL DEHISCENCE OF THE LATERAL ASPECT OF THE SURGICAL INCISION. CORRELATION WITH PHYSICAL EXAMINATION IS RECOMMENDED. 3. LARGE HIATAL HERNIA REDEMONSTRATED. 4. DIFFUSE ATHEROSCLEROSIS OF THE ABDOMINAL AORTA AND ILIAC ARTERIES REDEMONSTRATED. 5. NOT MENTIONED ABOVE IS REDEMONSTRATION OF A COLONIC ANASTOMOSIS IN THE LEFT LOWER QUADRANT. 6. OPACITIES WITHIN THE RIGHT LUNG BASE CONSISTENT WITH ATELECTASIS. Job Number: [id number] [facility]
== END 2018-07-17 00:51 | disposition home or self-care (01) ==
LOC: ER 21:24
DX: T81.49XA Infection following a procedure, other surgical site, initial encounter (principal); R53.1 Weakness; R19.7 Diarrhea, unspecified; R41.0 Disorientation, unspecified; R11.0 Nausea; E11.9 Type 2 diabetes mellitus without complications; I25.2 Old myocardial infarction
CPT/HCPCS: 74177; 80053; 85025; 86140; 96374; 99284; J2405; J7030